=== PATIENT | male | born 1950 | race Caucasian/White ===

== ENCOUNTER 2017-12-21 16:51 | Inpatient (IN) | payer OTHER, MEDICARE ==
[~2017-12-21] VITALS: Ht 185.4 cm; Wt 93.4 kg
[2017-12-21] MEDS ORDERED: TYLENOL325 MG PO (19:15)
[2017-12-21] MEDS ORDERED: NORVASC10 MG PO (19:16)
[2017-12-21] MEDS ORDERED: ADULT ASPIRIN R81 MG PO (19:17)
[2017-12-21] MEDS ORDERED: CARVEDILOL3.125 MG PO (19:17)
[2017-12-21] MEDS ORDERED: BENADRYL25 MG PO (19:19)
[2017-12-21] MEDS ORDERED: DOXYCYCLINE 10100 M2 PO (19:27)
[2017-12-21] MEDS ORDERED: MUCINEX600 MG PO (19:28)
[2017-12-21] MEDS ORDERED: PERCOCET PO (19:30)
[2017-12-21] MEDS ORDERED: PREDNISONE 10 M10 MG PO (19:34)
[2017-12-21 19:45] VITALS: BP 131/57
--- NOTE | 2017-12-22 01:14 | NUR ---
ASSUMED CARE AT 1945 WHEN PATIENT ADMITTED TO ROOM 326 FROM [place] PER W/C VAN. AND DAUGHTER ACCOMPANIED. PATIENT HAD AORTIC ANEURYSM REPAIR AND LT COMPARTMENTAL FASCIOTOMY. INCISIONS TO STERNUM CLERK TYPIST, DRAIN SITES BELOW ARNEL, ALL ARE GLUED. RT GROIN INCISION CLERK TYPIST, WELL APPROXIMATED. LT LEG DRESSING (MIPILEX) C/D/I, SECURED WITH GAY WRAP. ALL PULSES ADEQUATE. MOVES ALL EXTREMITIES WELL. UP WITH SBA, GAIT BELT, DECLINES WALKER. USES HEART PILLOW TO MAINTAIN STERNAL PRECAUTIONS. VOIDED PER TOILET, ALSO HAD LARGE BM. DOES OWN HYGIENE AND CLOTHING ADJUSTMENTS. HAS FOOT DROP BOOT TO LT FOOT. DOES NOT WEAR IT FOR AMBULATION, REAPPLIED AT HS. STATES ONLY STOPPED SMOKING WHEN ADMITTED TO HOSPITAL. NOW ON 3L/NC PER ORDER. PATIENT STATES THAT HE WAS ON SPRIVA AND ALBUTEROL INHALERS AT HOME, BUT HAS NOT USED THEM SINCE BEING HOSPITALIZED. THESE WERE NOT ON HIS MED REC LIST ORDERED FROM [place]. TOOK THESE HOME. ON ALBUTEROL NEBULIZERS Q4H. HAS ABRAISIONS ON LT UPPER BUTTOCK/HIP AND LT BUTTOCK, ALL SCABBED OVER AND APPEAR HEALING. HAS BEEN OBSERVED SLEEPING SINCE AROUND 2300. TURNS SELF. WEARING FOOT DROP BOOT. HOURLY ROUNDS CONTINUE. CALL LITE IN REACH. BED ALARM ON.
--- NOTE | 2017-12-22 05:56 | NUR ---
SLEPT FROM ABOUT 2330 TILL 0330. MEDICATED FOR PAIN, RETURNED TO SLEEP AND VISUALIZED SLEEPING WITH SNORING RESPS AT 0515. REMOVED FOOT DROP BOOT BECAUSE HE STATED IT WAS GETTING UNCOMFORTABLE. VOIDS PER URINAL. TURNS SELF EASILY IN BED, DECLINES ASSIST. SCABBED AREAS TO LEFT BUTTOCK AND POSTERIOR HIP REMAIN C/D/I. ENCOURAGED TURNING OFF THAT SIDE WHEN POSSIBLE. HOURLY ROUNDS CONTINUE. BED ALARM ON. CALL LITE IN REACH.
[2017-12-22 07:06] LABS: HEMATOCRIT 37.6 % (42.0-52.0); MCV 90.5 fL (80.0-100.0); MPV 6.8 fl. (7.2-11.1); RBC 4.15 mil/uL (4.50-6.00); RDW-CV 14.5 % (10.5-14.5)
[2017-12-22 07:17] LABS: CALCIUM 8.6 mg/dL (8.5-10.1); CREATININE 0.7 mg/dL (0.6-1.3)
[2017-12-22 08:09] VITALS: BP 134/60
[2017-12-22 16:45] VITALS: BP 130/55
--- NOTE | 2017-12-22 18:26 | NUR ---
PT HAS PARTICIPATED WITH THERAPIES AND CALLS FOR ASSIST NEEDS. PT MAINTAINS STERNAL PRECAUTIONS AND USES CHEST HUGGER TO RISE FROM SITTING. PT DENIES PAIN OR DISCOMFORT. PT VOIDS WELL AND CALLS FOR ASSIST TO BATHROOM.PT REMAINS ALERT AND ORIENTATED AND PROGRESSES TOWARDS GOALS.HOURLY ROUNDING CONTINUES.
[2017-12-22 20:10] VITALS: BP 121/47
--- NOTE | 2017-12-23 05:24 | NUR ---
ASSUMED PT CARE AT 1930. PT ALERT AND ORIENTED X4, POLITE AND COOPERATIVE WITH CARES. PT S/P AORTIC ANEURYSM REPAIR AND LEFT COMPARTMENTAL FASCIOTOMY. INCISIONS TO STERNUM AND GROIN ARNEL AND WELL APPROXIMATED. MEPILEX TO LEFT LEG DRY AND INTACT WITH VERY SMALL AMOUNT OF DRAINAGE. SECURED WITH GAY WRAP. WOUND NURSE CONSULT ORDERED. ABRASIONS ON LEFT UPPER BUTTOCK AND HIP AND LEFT BUTTOCK, ALL SCABBED OVER AND HEALING. PT REQUESTED PAIN MEDICATION AND SLEEP MEDICATION AT HS AND SLEPT WELL OVERNIGHT. PT USES HEART PILLOW TO MAINTAIN STERNAL PRECAUTIONS. PT ON 3L 02 PER NC. USES URINAL AT NIGHT, STAFF EMPTIES. PT CAN TURN SELF EASILY IN BED. CALL LIGHT AND FREQUENTLY USED ITEMS WITHIN REACH, BED ALARM ON FOR SAFETY. HOURLY ROUNDING IN PROGRESS, WILL CONTINUE TO MONITOR.
[2017-12-23 07:50] VITALS: BP 122/62
--- NOTE | 2017-12-23 16:52 | NUR ---
PT HAS BEEN UP TO RECLINER WITH FEET ELEVATED MOST OF DAY AND CALLS FOR ASSIST WITH TRANSFERRS USING STERNAL PRECAUTIONS. PT ANBULATES TO BATHROOM WITH SBA OF 1 AND STEADY GAIT. INCISIONS HEALING WITH DRY SCABS INTACT. DRESSING TO LT LOWER LEG DRY AND INTACT. BILAT THIGH HI MESERET HOSE PLACED AND PT FEELS LT LEG HAS BETTER COMPRESSION THAN LOOSE GAY WRAP. EDEMA TO LT LEG IS 1+ WITH FOOT WARM, DRY AND PINK AND 1+ PEDAL PULSE NOTED. PT USED IS WELL AND CONTINUES WITH O2 AT 2L PER NC.RT.LUNG WITH BETTER AIR SOUNDS, LT LUNG CLEAR. PRN FOR LT LEG PAIN GIVNE X2 TODAY WITH GOOD EFFECT. PT REMAINS ALERT AND ORIENTATED AND HOURLY ROUNDS CONTINUE.
[2017-12-23 20:13] VITALS: BP 123/57
--- NOTE | 2017-12-24 05:08 | NUR ---
ASSUMED PT CARE AT 1930. PT ALERT AND ORIENTED X4, POLITE AND COOPERATIVE WITH CARES. PT S/P AORTIC ANEURYSM REPAIR AND LEFT COMPARTMENTAL FASCIOTOMY. INCISIONS TO STERNUM AND GROIN ARNEL AND WELL APPROXIMATED. MEPILEX TO LEFT LEG DRY AND INTACT WITH VERY SMALL AMOUNT OF DRAINAGE. PT WORE THIGH HIGH MESERET HOSE DURING THE DAY, REMOVED TONIGHT. ABASIONS ON LEFT UPPER BUTTOCK SCABBED OVER AND HEALING. PRN MEDICATION FOR SLEEP PER PT REQUEST, PT SLEPT WELL OVERNIGHT. PT USES HEART PILLOW FOR STERNAL PRECAUTIONS. PT ON 2L 02 PER [place]. USES URINAL AT NIGHT, STAFF EMPTIES. PT CAN TURN SELF EASILY IN BED. CALL LIGHT AND FREQUENTLY USED ITEMS WITHIN REACH. BED ALARM ON FOR SAFETY. HOURLY ROUNDING IN PROGRESS, WILL CONTINUE TO MONITOR.
[2017-12-24 05:32] LABS: HEMATOCRIT 38.4 % (42.0-52.0); HEMOGLOBIN 12.5 gm/dL (14.0-18.0); MCH 29.5 pg (26.0-34.0); MCHC 32.5 g/dL (28.0-37.0); MPV 7.6 fl. (7.2-11.1); RBC 4.22 mil/uL (4.50-6.00); RDW-CV 14.5 % (10.5-14.5)
[2017-12-24 05:51] LABS: CALCIUM 8.6 mg/dL (8.5-10.1); CREATININE 0.8 mg/dL (0.6-1.3); MAGNESIUM 2.3 mg/dL (1.8-2.4); POTASSIUM 4.4 mmol/L (3.5-5.1)
--- NOTE | 2017-12-24 07:25 | NUR ---
ASSUMED CARE OF PT ASSESSED AND DOCUMENTED. PT IS A&O. VSS WNL. PT IS AFEBRILE. PT IS ON 2L WITH DIMINISHED LUNG SOUNDS. WHEEZING NOTED IN LL LOBE. PT IS ON FALL PRECAUTIONS PER FACILITY PROTOCOL. .
[2017-12-24 07:30] VITALS: BP 136/62
--- NOTE | 2017-12-24 16:53 | NUR ---
INITIAL ASSESSMENT: PATIENT ADMITTED TO INPATIENT REHAB ON 12/21/17 WITH A DIAGNOSIS OF DEBILITY. PATIENT ALERT AND ORIENTED. PRIOR TO ADMISSION PATIENT ABLE TO PERFORM HOUSHOLD CHORES AND DROVE. PATIENT RESIDES AT HOME WITH . PATIENT OWNS 0 DME. PATIENT'S HOME HAS 5 STEPS TO THE ENTRY AND 10 STEPS FROM THE MAIN LEVEL TO THE BEDROOM. PATIENT HAS NO HX OF HH OR SNF, AND PLANS TO RETURN HOME AT D/C. PATIENT ORIENTED TO THE ROLE OF CM, REHAB PROCESS, RESIDENT'S RIGHTS INFO, AND TEAM CONFRENCE MEETING. CM WILL REMAIN AVAILABLE TO ASSIST AND FOLLOW NEEDED.
--- NOTE | 2017-12-24 16:57 | NUR ---
CM SPOKE TO THE PATIENT TO DISCUSS ANY QUESTIONS OR CONCERNS THAT HE MAY HAVE FOR TOMORROW'S TEAM CONFRENCE MEETING. PATIENT HAS NO QUESTIONS OR CONCERNS AT THIS TIME. CM WILL REMAIN AVIALABLE TO ASSIST AND FOLLOW NEEDED.
--- NOTE | 2017-12-24 17:42 | NUR ---
PT HAS RESTED IN HIS ROOM THIS SHIFT WITH AT BEDSIDE. PT C/O PAIN X1. 5MG OF OXY GIVEN AND WAS EFFECTIVE. PT HAS REQUESTED BOOST WITH EVERY MEAL. NEW DRSG APPLIED TO L LEG AFTER SHOWERING. WOUND IS WELL APPROXIMATED WITH NO S OR SX OF INFECTION NOTED. EDUCATION GIVEN ON DEMAND. HOURLY ROUNDING COMPLETE.
[2017-12-24 20:14] VITALS: BP 119/57
[2017-12-25 05:04] LABS: ABSOLUTE BASOPHILS 0.1 thou/uL (0.0-0.2); ABSOLUTE EOSINOPHILS 0.2 thou/uL (0.0-0.7); ABSOLUTE LYMPHOCYTES 3.1 thou/uL (0.8-5.3); ABSOLUTE MONOCYTES 1.2 thou/uL (0.0-1.2); ABSOLUTE NEUTROPHILS 12.3 thou/uL (1.6-8.1); BASOPHILS 0.7 %; HEMATOCRIT 38.3 % (42.0-52.0); HEMOGLOBIN 12.6 gm/dL (14.0-18.0); LYMPHOCYTES 18.5 %; MCH 29.5 pg (26.0-34.0); MCV 89.2 fL (80.0-100.0); MPV 6.9 fl. (7.2-11.1); NUCLEATED RBCS 0 /100WBC; PLATELET COUNT* 444 thou/uL (150-400); POLYS 72.8 %; RBC 4.29 mil/uL (4.50-6.00); RDW-CV 14.1 % (10.5-14.5); WBC 16.8 thou/uL (4.0-11.0)
[2017-12-25 05:08] LABS: CALCIUM 8.7 mg/dL (8.5-10.1); CREATININE 0.8 mg/dL (0.6-1.3); POTASSIUM 4.1 mmol/L (3.5-5.1)
--- NOTE | 2017-12-25 05:24 | NUR ---
ASSUMED PT CARE AT 1930. PT ALERT AND ORIENTED X4, POLITE AND COOPERATIVE WITH CARES. PT S/P AORTIC ANEURYSM REPAIR AND LEFT LE COMPARTMENTAL FASCIOTOMY. 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 MEPILEX TO LEFT LLE WHICH WAS CHANGED ON DAY SHIFT REMAINS C/D/I. MESERET HOSE OFF AT HS. PRN PAIN AND SLEEP MEDICATIONS GIVEN PER PT REQUEST. PT SLEPT WELL OVERNIGHT. PT USES HEART PILLOW FOR STERNAL PRECAUTIONS. PT ON 2L 02 PER [place]. USES URINAL AT NIGHT, STAFF EMPTIES. PT CAN TURN SELF EASILY IN BED. CALL LIGHT AND FREQUENTLY USED ITEMS WITHIN REACH, BED ALARM ON FOR SAFETY. HOURLY ROUNDING IN PROGRESS, WILL CONTINUE TO MONITOR.
[2017-12-25 07:30] VITALS: BP 115/67
--- NOTE | 2017-12-25 17:12 | NUR ---
PT PARTICIPATES IN ALL THERAPIES. GOOD APPETITE. PAIN WELL CONTROLLED WITH MEDS. PT UP IN ROOM WITH WALKER AND SB ASSIST.
--- NOTE | 2017-12-25 17:29 | NUR ---
WOUND CARE NOTE: CONSULT RECEIVED FOR SCABBED AREAS ON LEFT BUTTOCK AND POSTERIOR HIP. ONLY NOTICED 1 SCAB TO LEFT BUTTOCK. PATIENT IS UNSURE OF ETIOLOGY. AREA IS WITHOUT S/S OF INFECTION, BUT THE EDGES ARE STARTING TO LIFT. WOULD RECOMMEND BANDAID TO PREVENT TRAUMATIC REMOVAL OF SCAB. PEELED BACK LEFT LOWER LEG FACIOTOMY SITE. AREA APPEARS WELL APPROXIMATED, THERE IS ECCHYMOSIS TO THE ANTERIOR ASPECT. WILL SIGN OFF AT THIS TIME, PLEASE RECONSULT IF NEEDED.
[2017-12-25 19:30] VITALS: BP 118/49
--- NOTE | 2017-12-25 20:50 | NUR ---
SITTING UP IN BED WATCHING TV. JUST HAD A BREATHING TX. 02 NC AT ONE LITER. PAIN MED GIVEN FOR C/O RIGHT LOWER LEG PAIN. TOOK MEDS WHOLE ALL AT ONCE WITH WATER.
[2017-12-26 05:06] LABS: ABSOLUTE BASOPHILS 0.1 thou/uL (0.0-0.2); ABSOLUTE EOSINOPHILS 0.2 thou/uL (0.0-0.7); ABSOLUTE MONOCYTES 1.1 thou/uL (0.0-1.2); ABSOLUTE NEUTROPHILS 8.8 thou/uL (1.6-8.1); BASOPHILS 0.9 %; EOSINOPHILS 1.7 %; HEMATOCRIT 37.2 % (42.0-52.0); HEMOGLOBIN 12.4 gm/dL (14.0-18.0); LYMPHOCYTES 22.7 %; MCH 29.5 pg (26.0-34.0); MCHC 33.2 g/dL (28.0-37.0); MCV 88.7 fL (80.0-100.0); MONOCYTES 8.5 %; MPV 6.9 fl. (7.2-11.1); NUCLEATED RBCS 0 /100WBC; PLATELET COUNT* 401 thou/uL (150-400); POLYS 66.2 %; RDW-CV 14.3 % (10.5-14.5); WBC 13.2 thou/uL (4.0-11.0)
[2017-12-26 05:30] LABS: CALCIUM 8.6 mg/dL (8.5-10.1); CREATININE 0.7 mg/dL (0.6-1.3); POTASSIUM 4.3 mmol/L (3.5-5.1)
--- NOTE | 2017-12-26 05:33 | NUR ---
USED URINAL DURING THE NIGHT. NO COMPLAINTS VOICED. HOURLY ROUNDING IN PROGRESS.
[2017-12-26 07:00] VITALS: BP 117/62
[2017-12-26 08:00] VITALS: BP 117/62
--- NOTE | 2017-12-26 18:43 | NUR ---
PT CARE ASSUMED THIS AM, ASSESSMENT AND VITAL SIGNS COMPLETED DOCUMENTED. PT HAS BEEN PLEASANT AND COOPERATIVE, PARTICIPATES IN ALL THERAPIES BUT C/O TIRING QUICKLY. DRESSING TO LEFT CALF CHANGED, INCISION REMAINS WELL APPROPXIMATED WITH LAURA INTACT. PRN PAIN MEDICATIONS GIVEN X2 WITH GOOD RESULTS. FALL PRECAUTIONS AND HOURLY ROUNDING CONTINUE.
[2017-12-26 20:15] VITALS: BP 128/51
--- NOTE | 2017-12-26 23:12 | NUR ---
ASSUMED CARE AT 1930. PATIENT HX DEBLIITY S/P DISSECTING AORTIC ANEURYSM. IN CHAIR AT BEGINNING OF SHIFT, TO BED SHORTLY THEREAFTER. UP WITH SBA, GAIT BELT, STERNAL PRECAUTIONS. VOIDED PER TOILET. ENCOURAGED PATIENT TO GET UP AND VOID IN NOC TO INCREASE ENDURANCE. TURNS SELF EASILY. TAKES PILLS WHOLE WITH WATER. INCISIONS TO STERNUM, DRAIN SITES C/D/I AND [employer] REP. LT LEG DSSG C/D/I. MEDICATED FOR PAIN AT HS. O2 1L/NC. HOURLY ROUNDS CONTINUE. BED ALARM ON. CALL LITE IN REACH.
--- NOTE | 2017-12-27 05:36 | NUR ---
SLEPT MOST OF THE NIGHT. VOIDED ONCE PER TOILET AFTER BEDTIME. VOIDED ONCE PER URINAL. TURNS SELF. BED ALARM ON. CALL LITE IN REACH. HOURLY ROUNDS CONTINUE. NO C/O PAIN. DOES STATE THAT HIS LEFT LEG THROBS AT TIMES, BUT NOT TONIGHT.
[2017-12-27 08:00] VITALS: BP 127/67
--- NOTE | 2017-12-27 19:24 | NUR ---
PT CONTINUES TO MAKE PROGRESS TOWARD DISCHARGE GOALS. AFO BRACE ORDERED FOR HIS LEFT LEG AND HOPE WHIPPER WILL BE OUT TO FIT HIM FOR IT TOMORROW AT 3 PM. FALL PRECAUTIONS AND HOURLY ROUNDING CONTINUE.
[2017-12-27 20:18] VITALS: BP 135/68
[2017-12-28 04:35] LABS: ABSOLUTE BASOPHILS 0.1 thou/uL (0.0-0.2); ABSOLUTE EOSINOPHILS 0.2 thou/uL (0.0-0.7); ABSOLUTE LYMPHOCYTES 2.5 thou/uL (0.8-5.3); ABSOLUTE MONOCYTES 0.9 thou/uL (0.0-1.2); ABSOLUTE NEUTROPHILS 9.2 thou/uL (1.6-8.1); BASOPHILS 0.9 %; EOSINOPHILS 1.7 %; HEMATOCRIT 38.3 % (42.0-52.0); HEMOGLOBIN 12.4 gm/dL (14.0-18.0); LYMPHOCYTES 19.6 %; MCH 28.9 pg (26.0-34.0); MCHC 32.3 g/dL (28.0-37.0); MCV 89.7 fL (80.0-100.0); MONOCYTES 7.2 %; MPV 6.9 fl. (7.2-11.1); NUCLEATED RBCS 0 /100WBC; PLATELET COUNT* 381 thou/uL (150-400); POLYS 70.6 %; RBC 4.27 mil/uL (4.50-6.00); RDW-CV 14.4 % (10.5-14.5)
[2017-12-28 05:09] LABS: ALBUMIN 3.1 g/dL (3.4-5.0); CREATININE 0.8 mg/dL (0.6-1.3); POTASSIUM 4.3 mmol/L (3.5-5.1); TOTAL BILIRUBIN 0.2 mg/dL (<0.1-1.0); TOTAL PROTEIN 5.8 g/dL (6.4-8.2)
--- NOTE | 2017-12-28 05:11 | NUR ---
ASSUMED PT CARE AT 1930. PT ALERT AND ORIENTED X4, POLITE AND COOPERATIVE WITH CARES. HX OF DEBILITY S/P DISSECTING AORTIC ANEURYSM. PT SITTING UP IN CHAIR AT SHIFT CHANGE, TO BED SHORTLY THEREAFTER. UP WITH SBA, GAIT BELT AND STERNAL PRECAUTIONS. UP TO BATHROOM TO VOID X2 THIS SHIFT. TAKES PILLS WHOLE WITH WATER WITHOUT DIFFICULTY. ON 1L 02 PER [place]. PT CAN TURN SELF EASILY IN BED. 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 MESERET HOSE REMOVED AT HS. DRESSING TO LEFT LEG C/D/I. PAIN MEDICATION AND SLEEP MEDICATION AT HS. CALL LIGHT AND FREQUENTLY USED ITEMS WITHIN REACH. BED ALARM ON FOR SAFETY. HOURLY ROUNDING IN PROGRESS, WILL CONTINUE TO MONITOR.
[2017-12-28 07:30] VITALS: BP 132/59
--- NOTE | 2017-12-28 09:53 | NUR ---
Nutrition: Pt concerned because he wasn't getting Boost+ on his trays. RD called kitchen to reaffirm pt's diet order. We are currently out of Boost+ catherine, so pt agreed to Boost+ vanilla until catherine arrives Sunday morning. RD ordering supplement stock this morning. Will continue to follow pt weekly.
[2017-12-28 21:48] VITALS: BP 105/52
--- NOTE | 2017-12-28 23:39 | NUR ---
ASSUMED CARE AT 1930. PATIENT S/P AORTIC ANEURYSM REPAIR. RESTING IN BED. UP WITH SBA, GAIT BELT, STERNAL PRECAUTIONS. VOIDS PER TOILET. TAKES PILLS WHOLE WITH WATER. DRESSING TO LT MENDOZA C/D/I. INSTRUCTED THAT THE MIPILEX AG DRESSING IS DESIGNED TO STAY ON FOR A FEW DAYS AND THAT THE AG IS ANTIMICROBIAL. PATIENT THOUGH THAT IT NEEDED TO BE CHANGED EVERY DAY, BUT VERBALIZES UNDERSTANDING OF NEW INFO. 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 TURNS SELF. REFUSES BED ALARM. MEDICATED FOR PAIN AT HS. CALL LITE IN REACH. HOURLY ROUNDS CONTINUE.
--- NOTE | 2017-12-29 05:57 | NUR ---
SLEPT MOST OF THE NIGHT. VOIDED PER TOILET. TURNS SELF. REFUSES BED ALARM. HOURLY ROUNDS CONTINUE. DENIES PAIN. CALL LITE IN REACH.
[2017-12-29 07:51] VITALS: BP 128/49
--- NOTE | 2017-12-29 14:20 | CON ---
[facility] [address] [place] [address] CONSULTATION Name: BALTA CAMERON JR Room: [address] IN .R.#: [id number] Admission: 12/21/17 Attend Phys: Evelin Yao DO Discharge: Date of : 54 Report #: [id number] THIS REPORT FOR: //name// CC: Evelin Hartmanen DATE OF SERVICE: 12/24/2017 REASON FOR CONSULTATION: Status post recent left lower extremity fasciotomy. HISTORY OF PRESENT ILLNESS: The patient is a very pleasant 67-year-old male who presented to [facility] with complaints of severe chest pain and left lower extremity pain. A CT of the chest, abdomen and pelvis with runoff was obtained, which demonstrated an extensive type A aortic dissection. 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 He was taken emergently to the operating room with Cardiothoracic Surgery for placement of a Hemashield graft. He was intubated postoperatively for a couple of days. Postoperatively, he was noted to have a cool left lower extremity with absent pedal pulses. He was not felt to be a candidate for any revascularization as he was quite ill, was hypotensive requiring pressor support. Once he improved dramatically and was extubated, he was found to have dopplerable pedal pulses. On 12/12/2017, he was noted to have increased edema in the left anterior lower leg with increased pain and decreased dorsiflexion. He was taken emergently to the operating room for a left lower extremity anterior compartment fasciotomy with Dr. Wally Polk. Dr. Polk was able to close his fasciotomy site with keshawn. Since that time, he has had some improvement in his dorsiflexion and plantar flexion. He was transferred here to [facility] for acute rehabilitation. We have been asked to evaluate the patient for ongoing care following his left lower extremity fasciotomy. He continues to report improvement in the movement of his left foot. He reports mild incisional discomfort, but states he is really doing quite well. He is somewhat fatigued from undergoing therapy. PAST MEDICAL HISTORY: 1. Extensive type A aortic dissection. 2. Chronic obstructive pulmonary disease. 3. Hypertension. 4. Osteoarthritis. PAST SURGICAL HISTORY: 1. Hernia repair. 2. Right knee arthroscopy. 3. Hemashield graft placement [place] [address] CONSULTATION Name: BALTA CAMERON JR Room: [address]#: [id number] Admission: 12/21/17 Attend Phys: Evelin Yao DO Discharge: Date of : 54 Report #: [id number] 4. Left lower extremity fasciotomy. ALLERGIES: TETANUS. HOME MEDICATIONS: Please refer to the MAR. SOCIAL HISTORY: He is a 1 pack per day smoker, no alcohol or illicit drug use. He is . FAMILY HISTORY: Significant for coronary artery disease in his mother who at the age of 65. REVIEW OF SYSTEMS: A 12-point review of systems has been reviewed and is negative except for the above-mentioned in the history of present illness. PHYSICAL EXAMINATION: VITAL SIGNS: Temperature 36.8, heart rate 66, blood pressure 142/75, oxygen saturation is 96% on 2 liters per nasal cannula. GENERAL: He is alert and oriented, in no acute distress. HEENT: Head is normocephalic, atraumatic. NECK: Supple, without jugular venous distention or carotid bruit. HEART: Regular rate and rhythm. CHEST: Lungs are diminished in the bases bilaterally, no distress, symmetrical expansion. ABDOMEN: Soft, nontender, positive bowel sounds. EXTREMITIES: He has palpable bilateral radial and femoral pulses, nonpalpable pedal pulses. His feet are warm, pink, and neuromotor intact. His left lateral lower leg incision is intact with keshawn, mild purplish discoloration along his incision line, which is no change from his recent inpatient hospitalization. He does have slight foot drop on the left. SKIN: His midline chest incision is clean, dry and intact, healing well. NEUROLOGIC: Alert and oriented with no focal neurologic deficits. LABORATORY DATA: Hemoglobin 12.5, hematocrit 38.4, white blood cell count 7.0, platelets 374. Sodium 140, potassium 4.4, chloride 102, CO2 30, BUN is 21, creatinine is 0.8, glucose is 80. ASSESSMENT AND PLAN: 1. Extensive type A aortic dissection, status post Hemashield graft placement by Cardiothoracic Surgery. He is doing quite well from his extensive procedure. 2. Compartment syndrome, status post left lower extremity anterior compartment fasciotomy. His incision remained stable. Recommend continuing dressing changes with Mepilex Ag border dressing to be changed every 3 days. Recommend mild compression, he is tolerating MESERET hose at this time. We will continue to follow with you. [address] [address] CONSULTATION Name: BALTA CAMERON JR Room: [facility] [place] M.R.#: [id number] Admission: 12/21/17 Attend Phys: Evelin Yao DO Discharge: Date of : 54 Report #: [id number] Thank you for the opportunity to participate in the care of the patient. Please feel free to contact our office with any questions or concerns. <ELECTRONICALLY SIGNED> By: Abebe Santana DO 12/29/17 1420 [id number] Mejia /ion
--- NOTE | 2017-12-29 19:03 | NUR ---
PT CARE ASSUMED THIS AM, ASSESSMENT AND VITAL SIGNS COMPLETED DOCUMENTED. PT COMPLETED ALL THERAPY SESSIONS TODAY AND STATES HE IS REALLY STARTING TO SEE SOME PROGRESS. DRESSING TO LEFT LOWER LEG IS CLEAN, DRY AND INTACT WITH THIGH HIGH MESERET HOSE IN PLACE. PT REFUSES BED AND CHAIR AND ALARMS, HE HAS BEEN REMINDED TO CALL FOR ASSISTANCE WHEN GETTING UP. HOURLY ROUNDING CONTINUES.
[2017-12-29 20:28] VITALS: BP 124/53
[2017-12-30 04:32] LABS: ABSOLUTE BASOPHILS 0.1 thou/uL (0.0-0.2); ABSOLUTE EOSINOPHILS 0.2 thou/uL (0.0-0.7); ABSOLUTE LYMPHOCYTES 1.8 thou/uL (0.8-5.3); ABSOLUTE NEUTROPHILS 6.9 thou/uL (1.6-8.1); BASOPHILS 1.1 %; EOSINOPHILS 2.1 %; HEMATOCRIT 37.2 % (42.0-52.0); HEMOGLOBIN 12.6 gm/dL (14.0-18.0); LYMPHOCYTES 17.8 %; MCH 29.9 pg (26.0-34.0); MCHC 33.9 g/dL (28.0-37.0); MCV 88.1 fL (80.0-100.0); MONOCYTES 10.1 %; MPV 7.1 fl. (7.2-11.1); NUCLEATED RBCS 0 /100WBC; PLATELET COUNT* 350 thou/uL (150-400); POLYS 68.9 %; RBC 4.22 mil/uL (4.50-6.00)
[2017-12-30 04:56] LABS: CALCIUM 8.8 mg/dL (8.5-10.1); CREATININE 0.8 mg/dL (0.6-1.3); POTASSIUM 4.2 mmol/L (3.5-5.1); TOTAL BILIRUBIN 0.3 mg/dL (<0.1-1.0); TOTAL PROTEIN 5.7 g/dL (6.4-8.2)
--- NOTE | 2017-12-30 05:27 | NUR ---
ASSUMED CARES AT 1920. PT ALERT AND ORIENTED. ALREADY IN BED. S/P AORTIC ANEURYSM REPAIR. STERNAL PRECAUTIONS. HEART HUGGER ON. DRESSING TO LLE IS INTACT. PAIN MEDS GIVEN FOR LLE PAIN. TAKES PILLS WHOLE WITHOUT ISSUES. HE IS A SBA WITH GAIT BELT. UP TO BATHROOM. USED URINAL AND STAFF EMPTIED. SLEPT MOST OF NIGHT. REFUSED BED ALARM. CALL LIGHT IN REACH.
[2017-12-30 08:00] VITALS: BP 118/66
[2017-12-30 17:00] VITALS: BP 136/67
--- NOTE | 2017-12-30 17:01 | NUR ---
AM ASSESSMENT AND VITAL SIGNS COMPLETED DOCUMENTED. PT HAS RESTED INTERMITTENTLY TODAY AND HAS AMBULATED IN THE ROSE WITH NURSING X3. PAIN HAS BEEN WELL CONTROLLED WITH ONE AM DOSE OF PAIN MEDICATION. PT CONTINUES TO PROGRESS, STATES HE WANTS TO GET HOME SOON. FALL PRECAUTIONS AND HOURLY ROUNDING CONTINUE, NO ACUTE DISTRESS.
[2017-12-30 19:49] VITALS: BP 112/52; BP 122/58
--- NOTE | 2017-12-31 05:59 | NUR ---
ASSUMED CARES AT 1920. PT ALERT AND ORIENTED. PLEASANT. S/P AORTIC ANEURYSM REPAIR. STERNAL PRECAUTIONS. HAS ON HEART HUGGER. PERCOCET GIVEN FOR PAIN TO LLE. DRESSING INTACT TO LLE. HE IS A SBA WITH GAIT BELT. UP TO BATHROOM BUT DID USE URINAL WELL. REFUSES BED ALARM. CALL LIGHT IN REACH.
[2017-12-31 07:57] VITALS: BP 116/71
--- NOTE | 2017-12-31 18:11 | NUR ---
pt has participated with therapies and wears afo to lt leg. hope has come today and adjusted afo for less pressure to upper incision of lt leg. pt reports relief of discomfort. prn for pain given this am with good effect. pt calls for sba to bathroom and for all transferrs and wears chest harnes for sternal precautions. pt remains alert and orientated and progresses towards goals,hourly rounding continues.
[2017-12-31 19:49] VITALS: BP 137/59
--- NOTE | 2017-12-31 23:58 | NUR ---
ASSUMED CARES AT 1920. PT ALERT AND ORIENTED. PLEASANT. STERNAL PRECAUTIONS. HEART HUGGER ON. PERCOCET GIVEN FOR PAIN TO LLE. DRESSING TO LLE INTACT. 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 AMBIEN GIVEN REQUESTED. PT SLEEPING AT THIS TIME. WILL CONTINUE TO MONITOR.
[2018-01-01 05:46] LABS: HEMATOCRIT 36.9 % (42.0-52.0); HEMOGLOBIN 12.5 gm/dL (14.0-18.0); MCH 29.7 pg (26.0-34.0); MCHC 33.8 g/dL (28.0-37.0); MCV 87.9 fL (80.0-100.0); MPV 7.1 fl. (7.2-11.1); RBC 4.2 mil/uL (4.50-6.00); RDW-CV 13.7 % (10.5-14.5)
[2018-01-01 05:59] LABS: CALCIUM 9.1 mg/dL (8.5-10.1); CREATININE 0.8 mg/dL (0.6-1.3); POTASSIUM 4.4 mmol/L (3.5-5.1)
--- NOTE | 2018-01-01 06:10 | NUR ---
PT USED URINAL AND STAFF EMPTIED. SLEPT WELL MOST OF THE NIGHT. NO COMPLAINTS. CALL LIGHT IN REACH.
[2018-01-01 07:30] VITALS: BP 122/58
--- NOTE | 2018-01-01 16:39 | NUR ---
PT REMAINS ALERT AND ORIENTATED AND PROGRESSES TOWARDS GOALS. PT TRANSFERRED TO APPARTMENT ROOM AND IS TOLD TO CONTINUE TO CALL FOR ASSIST WITH ALL AMBULATION. PT AMBULATES WITH SBA AND GAITBELT AND CONTINUES TO USE STERNAL PRECAUTIONS. PRN FOR GENERALIZED PAIN GIVEN THIS AM. PT CONTINENT OF B+B. DRESSING DRY AND INTACT TO LT LOWER LEG WITH BILAT MESERET HOSE ON. HOURLY ROUNDING CONTINUES.
[2018-01-01 20:07] VITALS: BP 101/51
--- NOTE | 2018-01-02 05:34 | NUR ---
ASSUMED PATIENT CARE AT 1900. PATIENT ALERT AND ORIENTED TIMES FOUR. MINOR COMPLAINTS OF PAIN, MANAGED WITH ORAL MEDICATIONS. ABLE TO PERFORM SELF-CARE AND CLOTHING MANAGEMENT INDEPENDENTLY. USES URINAL DURING THE NIGHT. HOURLY ROUNDING AND CLOTH BRUSHING AND SUEDING SUPERVISOR COMLETED DOCUMENTED. FALL RISK PRECAUTIONS REMAIN IN PLACE.
[2018-01-02 07:47] VITALS: BP 106/58
[2018-01-02 14:06] VITALS: BP 106/58
[2018-01-02] MEDS ORDERED: AMBIEN 5 MG TABL5 M1 PO (14:23)
[2018-01-02 14:24] VITALS: BP 106/58
[2018-01-02 15:00] VITALS: BP 106/58
--- NOTE | 2018-01-02 15:42 | NUR ---
PATIENT DISCHARGE TO HOME, ALL PAPERWORK GIVEN TO PATIENT, REVIEWED AND ALL QUESTIONS ANSWERED, PRESCRIPTIONS GIVEN TO PATIENT. FAMILY MEMBER HERE TO PICK PATIENT UP, PATIENT LEFT FLOOR WITH FAMILY AND STAFF, AMBULATORY, ALL BELONGING TAKEN WITH PATIENT, LEFT IN CAR TO HOME. WILL HAVE OUTPATIENT PT/OT.
[2018-01-02 15:44] VITALS: BP 106/58
--- NOTE | 2018-01-02 17:02 | NUR ---
SW met with pt to discuss dc planning and review team conference summary. Pt to dc home with today with home exercise program and OP therapy option. Pt plans to go to OP therapy clinic near his home in [place]. Pt said that he has a shower chair already in his shower and that he feels comfortable and confident with dc home today. No needs expressed.
--- NOTE | 2018-01-14 15:02 | PLAN ---
[address] [address] REHAB UNIT PLAN OF CARE Name: BALTA CAMERON JR Room: [address]#: [id number] Admission: 12/21/17 Attend Phys: Evelin Yao DO Discharge: 01/02/18 Date of : 54 Report #: [id number] THIS REPORT FOR: //name// CC: Evelin Andersonh Vang This is a 67-year-old male admitted to inpatient rehabilitation to facilitate safe discharge home, status post acute hospitalization for ascending aortic aneurysm repair, COPD, and coronary artery disease who currently has needs in physical and occupational therapy as well as mild impairment of comprehension, expression, social interaction, problem solving as well as memory. MEDICAL PROGNOSIS: Good. REHABILITATION PROGNOSIS: Good. Estimated length of stay is ____ days with discharge disposition to the home setting with supportive family where he does live in a house. He does have 10 steps to enter. He does have sternal precautions for 3 months, lifting restrictions 5-10 pounds for 4 weeks. Previous level of function was independent with activities of daily living. Current level of function is minimum to moderate assistance of 1-2 depending on therapy, activity and, time of day. Estimated length of stay days. Physical therapy will see the patient 60-90 minutes per day, 5 days per week, working on upper and lower body strength, balance, coordination, and navigation. Occupational therapy will work with the patient 60-90 minutes per day, 5 days per week, working on upper and lower body strength, balance, coordination, navigation, bathing, dressing, and toileting. Speech-language pathology will work with the patient 60-90 minutes per day, 5 days per week, working on memory, cognition, expression and social interaction. This is an overall plan of care, may change from time to time. We will team weekly and make changes to plan of care as needed. <ELECTRONICALLY SIGNED> By: Evelin Yao DO 01/14/18 1502 1228 [id number] Yao DO /nt
--- NOTE | 2018-01-14 15:02 | H ---
[address] [address] HISTORY AND PHYSICAL Name: BALTA CAMERON JR Room: [address]#: [id number] Admission: 12/21/17 Attend Phys: Evelin Yao DO Discharge: 01/02/18 Date of : 54 Report #: [id number] THIS REPORT FOR: //name// CC: Evelin Vang HISTORY OF PRESENT ILLNESS: This is a 67-year-old male admitted to inpatient rehabilitation to facilitate safe discharge to the home setting status post admission on 12/09/2017 with a surgical date of 12/09/2017, 12/12/2017 and 12/18/2017. His previous level of function was independent with all activities of daily living. His current level of function is minimum to moderate assistance depending on therapy, activity and time of day. He was in a multi-trauma, had an aortic dissection requiring surgical repair. Postoperatively, he required oxygen, but did do well in the postoperative period. However, he is not up to his current level of function. No changes to the preadmission screening. Estimated length of stay is 14-16 days with discharge disposition to the home setting. PAST MEDICAL HISTORY: Chronic obstructive pulmonary disease, peripheral vascular disease, hypertension, tobacco abuse, peripheral artery disease, hypoxic respiratory failure. ALLERGIES: To nothing. SOCIAL HISTORY: One pack per day smoker. FAMILY HISTORY: No other family history other than heart disease and stroke. REVIEW OF SYSTEMS: A 14-point review of systems is done today, is negative except as mentioned in the HPI, specifically no fever, chest pain, shortness of breath, abdominal pain or distention, change in bowel or change in bladder. PHYSICAL EXAMINATION: GENERAL: Alert, oriented, no apparent distress. HEART: Regular. LUNGS: Symmetric expansion. ABDOMEN: Soft. MUSCULOSKELETAL: No clubbing, cyanosis or edema. ASSESSMENT: Status post right hand dominant male. PLAN: Admission to inpatient rehabilitation to facilitate safe discharge to home setting. <ELECTRONICALLY SIGNED> By: Evelin Yao DO 01/14/18 1502 [id number] Yao DO /nt
--- NOTE | 2018-01-14 15:04 | D ---
[facility] [address] [place] [address] DISCHARGE SUMMARY Name: BALTA CAMERON JR Room: [address] [place] .R.#: [id number] Admission: 12/21/17 Attend Phys: Evelin Yao DO Discharge: 01/02/18 Date of : 54 Report #: [id number] THIS REPORT FOR: //name// CC: Evelin Hartmanen DATE OF SERVICE: 01/02/2018 DISCHARGE DIAGNOSES: Status post an abdominal aortic aneurysm, post-repair with left lower extremity thrombosed popliteal artery, status post fasciotomy, discharging today to the home setting with outpatient physical and occupational therapy. Follow up with cardiology, his surgeon and primary care physician as previously arranged. Notifications for physician were given. He will maintain a cardiac diet. He will maintain sternal precautions until otherwise noted as well as fall precautions. Monitor for weight gain. Medications were reviewed, reconciled by myself and are available in the MAR. Prescriptions were given for Ambien, Norvasc, Coreg, Percocet as well as outpatient PT and OT orders. The patient progressed well during his therapies with Physical and Occupational Therapy as well as Speech and Language Pathology, only barriers on discharge were sternal precautions. DISCHARGE PHYSICAL EXAMINATION: GENERAL: Alert, oriented, no apparent distress. VITAL SIGNS: Reviewed and are stable. HEENT: Head atraumatic, normocephalic. Pupils equal, round, reactive. ABDOMEN: Soft, nontender, nondistended. NEUROLOGIC: Cranial nerves 2-12 are grossly intact. No focal neuro deficits. SKIN: Warm and dry. Incision is well healed. [place] are still in, in the left lower extremity from fasciotomy. <ELECTRONICALLY SIGNED> By: Evelin Yao DO 01/14/18 1504 [id number] Yao DO /nt
== END 2018-01-02 15:30 | disposition home or self-care (01) | DRG 948 ==
LOC: M.REH 16:51
PROVIDERS: Family Medicine; Internal Medicine; ADMIT Physical Medicine & Rehabilitation
DX: R53.81 Other malaise (principal); T79.A0XA Compartment syndrome, unspecified, initial encounter; M19.90 Unspecified osteoarthritis, unspecified site; J44.9 Chronic obstructive pulmonary disease, unspecified; I10 Essential (primary) hypertension; Z88.7 Allergy status to serum and vaccine; F17.210 Nicotine dependence, cigarettes, uncomplicated; Z82.49 Family history of ischemic heart disease and other diseases of the circulatory system; X58.XXXA Exposure to other specified factors, initial encounter; I25.10 Atherosclerotic heart disease of native coronary artery without angina pectoris; I73.9 Peripheral vascular disease, unspecified; G89.18 Other acute postprocedural pain; Z79.899 Other long term (current) drug therapy